=== PATIENT | male | born 1950 | race Caucasian/White ===

== ENCOUNTER → 2018-09-30 09:27 | Outpatient (CLI) | payer MEDICARE, OTHER ==
[2016-03-06 11:30] VITALS: BMI 28.7
[~2018-09-30 09:27] MED LIST: ALEVE PM PO; ASPIRIN EC325 M1 PO; BYSTOLIC10 MG PO; IBUPROFEN800 MG PO; LIPITOR10 MG PO; NEURONTIN 300300 MG PO; PERCOCET 10/3251 TA1 PO
== END | disposition home or self-care (01) ==
LOC: D.MRI 09-03 10:30
PROVIDERS: ATTEND Family Medicine
DX: M48.02 Spinal stenosis, cervical region (principal)